=== PATIENT | male | born 1970 | race African-American/Black ===

== ENCOUNTER 2024-07-11 22:49 | Emergency (ER) | payer MEDICAID ==
[~2024-07-11] VITALS: Ht 188 cm; Wt 103.0 kg
[2024-07-11 22:57] VITALS: BP 223/127; PULSE 106; RESP 18; TEMP 36.9; O2SAT 95
== END 2024-07-11 23:20 | disposition left against medical advice (07) ==
LOC: ER 22:49
DX: R07.89 Other chest pain (principal); I10 Essential (primary) hypertension; Z53.21 Procedure and treatment not carried out due to patient leaving prior to being seen by health care provider
CPT/HCPCS: 93005

== ENCOUNTER 2025-03-11 03:07 | Emergency (ER) | payer MEDICAID ==
[~2025-03-11] VITALS: Ht 182.9 cm; Wt 108.2 kg
[2025-03-11 03:10] VITALS: O2SAT 99
[2025-03-11] MEDS: LABETALOL 5MG/ML 4ML INJ IV ONE (04:00)
[2025-03-11 04:09] LABS: BASOPHILS % 1.1 % (0.0-2.0); EOSINOPHILS % 3.0 % (0.0-5.0); HEMATOCRIT. 37.5 % (42.0-52.0); HEMOGLOBIN. 12.4 g/dL (14.0-18.0); LYMPHOCYTES % 26.1 % (20.0-50.0); MEAN PLATELET VOLUME 8.9 fl (7.4-10.4); MONOCYTES % 5.7 % (2.0-8.0); NEUTROPHILS % 64.1 % (40.0-76.0); PLATELET 269 x1000/uL (130-400); RED BLOOD CELL COUNT 4.17 mill/uL (4.7-6.1); RED CELL DISTRIBUTION WIDTH 14.1 % (11.6-14.6)
[2025-03-11 04:19] LABS: CREATININE 1.4 mg/dL (0.6-1.3); UREA NITROGEN BLOOD 16 mg/dL (9-23)
[2025-03-11 04:23] LABS: TROPONIN I HIGH SENSITIVITY 105 ng/L (3.0-53)
[2025-03-11] MEDS: CEFTRIAXONE 1GM/50ML 50 ML IV NR (04:39)
[2025-03-11] MEDS: AZITHROMYCIN 500MG/250ML 250 ML IV NR (05:09)
[2025-03-11] MEDS: MELATONIN 3MG TABLET PO ONE (06:10)
[2025-03-11] MEDS: IOHEXOL-350 100 ML BOTTLE ONE (06:39)
[2025-03-11 06:41] LABS: TROPONIN I HIGH SENSITIVITY 106 ng/L (3.0-53)
[2025-03-11 07:55] LABS: TROPONIN I HIGH SENSITIVITY 106 ng/L (3.0-53)
[2025-03-11 09:00] VITALS: TEMP 36.8; O2SAT 95
[2025-03-11] MEDS ORDERED: CLONIDINE 0.1MG TABLET PO PRN (09:00)
[2025-03-11] MEDS ORDERED: HYDRALAZINE 20MG/ML VIAL IV PRN (09:00)
[2025-03-11] MEDS ORDERED: ACETAMINOPHEN 325MG TABLET PO PRN (09:00)
[2025-03-11] MEDS ORDERED: ZOLPIDEM TARTRATE 5MG TABLET PO PRN (09:00)
[2025-03-11] MEDS ORDERED: ONDANSETRON HCL 4MG/2ML INJ IV PRN (09:00)
[2025-03-11] MEDS ORDERED: HYDROCODONE/ACETAMINOPHEN 5/325MG TABLET PO PRN (09:00)
[2025-03-11] MEDS ORDERED: MAGNESIUM/ALUMINUM HYDROXIDE/SIMETHICONE 30ML UDC PO PRN (09:00)
[2025-03-11] MEDS: PANTOPRAZOLE SODIUM 40 MG/VIAL IV SCH (09:30)
[2025-03-11] MEDS: VANCOMYCIN 1G PREMIX 200 ML IV SCH (09:30)
[2025-03-11] MEDS: AMLODIPINE 5MG TABLET PO SCH (09:30)
[2025-03-11] MEDS: ENOXAPARIN 40MG/0.4ML SYR SUBCUT SCH (09:31)
[2025-03-11] MEDS: SODIUM CHLORIDE 0.9% 1,000 ML IV SCH (09:32)
[2025-03-11] MEDS ORDERED: VANCOMYCIN 750MG PREMIX 150 ML IV SCH ×2 (11:00→21:00)
[2025-03-11] MEDS ORDERED: PIPERACILLIN/TAZO 3.375G/50ML 50 ML IV SCH (14:00)
== END 2025-03-11 11:29 | disposition left against medical advice (07) ==
LOC: ER 03:07 → EDBEDREQTM 05:17 → EDBEDREQ 05:17 → EDBEDREQSVC 11:16 → CANBEDREQ 11:28 → ER 11:29
DX: I10 Essential (primary) hypertension (principal); J18.9 Pneumonia, unspecified organism; Z98.890 Other specified postprocedural states; F12.90 Cannabis use, unspecified, uncomplicated; Z79.899 Other long term (current) drug therapy
CPT/HCPCS: 99291; 96365; 71275; 96367; 96375; 71045; 96366; 80048; 83880; 83605; 85025; 87040; 84484; 36415; 84145; 93005; 96372; Q9967; J3373 ×2; J0456; J0696; J1650; J3490; J2470